=== PATIENT | female | born 2005 | race Caucasian/White ===

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

== ENCOUNTER 2024-05-10 15:30 | Outpatient (RCR) | payer OTHER, SELFPAY ==
--- NOTE | 2024-05-03 11:53 | HP.PTEVAL_ITS ---
Patient's Visit Information Visit Information Visit Information: LUIS FERNANDO SHARMA is a 18 year old F referred to Physical Therapy by SHEILA Moseley with a diagnosis of Lumbar and thoracic spine pain. Date of Evaluation: 05/03/24 Physical Therapist: Gabriel Ulloa DPT Visit Plan Frequency: 1x/Week Duration: 6 Weeks Plan: 1) lumbar ROM, ie cat/cow, prayer stretch 2) mid row, prone thoracic strengthening 3) may use IFC and ice for pain control. Subjective Subjective: Pt. is here today for her initial evaluation with diagnosis of mid back pain. Pt. reports having a history of LBP. She did fall going down her stairs, ~2 months ago. she is now having mid back pain. She reports not much change in her symptoms since. Pt. is now taking a MR at night with some mild relief. Pt. does typical works out, doing a lot of core strengthening. 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 Pt. reports having increased pain after work. It does bother her at times with sleeping. Pt. had not radicular symptoms. No myotomal weakness noted. Pt. reports not consistent pain in AMs. Pt. does have increased pain with lifting at work. She has stay away from lifting due to her pain. Pt. would benefit from PT to address the above limitations. Pain Mid thoracic spine: Pain Intensity (Out of 10): 3 Pain Intensity Range: 2 and 6 Objective Objective: POSTURE: Pt has normal iliac crest heights. Pt. has slight increase in thoracic kyphosis. PALPATION: pt. has tenderness at lower thoracic and lumbar erector spinae. Pt. has + pain with spring testing of T10-L4 and pain at SI joint testing. NEURO: normal sensation throughout LEs. Pt. has normal DTR of BLEs. ROM: LUMBAR SPINE: flexion min loss NE, ext min loss increase NW, rotation min/nil loss mild increase NW, SB min loss bilat mild increase NW. THORACIC SPINE: flexion mild increase NW, ext min loss increase NW, rotation min loss bilat increase NW. PT. has normal B shoulder and B hip ROM without increase in symptoms. MMT: Pt. has 5/5 strength throughout BLEs, Pt. has fair core strength and fair lumbar extension strength. GAIT: Normal without increase in symptoms. STAIRS: normal. Special Tests Thoracic Sitting: Flexion - Mechanical Response: No effect Thoracic Sitting: Flexion - Symptoms During Testing: No effect Thoracic Sitting: Flexion - Symptoms After Testing: No effect Thoracic Sitting: Extension - Mechanical Response: No effect Thoracic Sitting: Extension - Symptoms During Testing: Increases Thoracic Sitting: Right rotation - Mechanical Response: No effect Thoracic Sitting: Right Rotation - Symptoms During Testing: Increases Thoracic Sitting: Right Rotation - Symptoms After Testing: No worse Thoracic Sitting: Left rotation - Mechanical Response: No effect Thoracic Sitting: Left Rotation - Symptoms During Testing: Increases Thoracic Sitting: Left Rotation - Symptoms After Testing: No worse Thoracic Lying: Prone Extension - Mechanical Response: No effect Thoracic Lying: Prone Extension - Symptoms During Testing: Increases Thoracic Lying: Prone Extension - Symptoms After Testing: No worse L/S Slump test left side: Negative L/S Slump test right side: Negative L/S Left Straight Leg Raise: Negative L/S Right Straight Leg Raise: Negative Balance/Special Test Scores Oswestry Low Back Score: 9 Goals Goal 1:: LTG: Pt. to be I with HEP for core and lumbar extensor strengthening. Goal Time Frame: 4-6 Weeks Goal 2:: STG: pt. to be able to sleep without increase in thoracic or lumbar spine symptoms. Goal Time Frame: 2-4 Weeks Goal 3:: LTG: pt. to have increased core and thoracic extensor strength increased to 5/5 throughout without increase in symptoms. Goal Time Frame: 4-6 Weeks Goal 4:: LTG: Pt. to have no pain at work. Goal Time Frame: 4-6 Weeks Goal 5:: LTG: Pt to have full lumbar and thoracic ROM without increase in symptoms. Goal Time Frame: 4-6 Weeks Rehabilitation Potential Physical Therapy Diagnosis: Pt. has signs and symptoms consistent with a lumbar and thoracic spine strain. I did not see any radicular symptoms with testing today. I would suggest doing some light ROM initially to reduce symptoms then work on strengthening of her erector spinae to increase tolerance to all ADls and work activities. Rehabilitation Potential: Excellent Anticipated Interventions Patient/Client Instruction: Educate patient on: Condition, Plan of Care, Risk Factors and Benefits of Fitness Program For the Purpose of:: To improve decision making, To facilitate caregiver knowledge, To improve self management, To prevent re-injury and To improve ability to perform tasks related to life management Therapeutic Exercise to Include: Strength training, Endurance training, Flexibilty training, Passive ROM, Active ROM, Dynamic Lumbar Stabilization and Jasper Exercises For the Purpose of:: To decrease pain, To increase ROM, To improve nutrient delivery to tissue, To increase oxygenation perfusion, To improve muscle performance and motor function, To improve ability to perform ADL's and To increase tolerance to activity/condition/position IF ES: Yes Cryotherapy (ice pack, ice massage): Yes Thermo therapy (hot pack): Yes For the Purpose of:: To decrease pain, To decrease swelling/inflammation, To increase ROM and To improve nutrient delivery to tissue Text: Thank you for the opportunity to evaluate your patient. For Medicare and Medicare HMO plans, please review the plan of care and approve it. It will need to be FAXED BACK to us at [phone] for Medicare purposes. For Medicare only, by signing this I certify the plan of care. Please let me know if there are questions or concerns regarding this plan of care. Physician Signature: Date:
== END 2024-05-10 19:00 | disposition home or self-care (01) ==
LOC: PT 15:30
PROVIDERS: PCP Internal Medicine; Referring Provider Student in an Organized Health Care Education/Training Program; Visit Provider Student in an Organized Health Care Education/Training Program
DX: M54.6 Pain in thoracic spine (principal); M54.50 Low back pain, unspecified
CPT/HCPCS: 97161